=== PATIENT | male | born 1955 | race Two or more races ===

== ENCOUNTER → 2024-04-28 | Outpatient (BNVA) | payer MEDICARE, MEDICAID, SELFPAY | END | disposition home or self-care (01) | PROVIDERS: PCP Internal Medicine; Referring Provider Internal Medicine; Visit Provider Urology | DX: Z53.21 Procedure and treatment not carried out due to patient leaving prior to being seen by health care provider (principal) | CPT/HCPCS: 81003 ==

== ENCOUNTER 2024-11-21 05:00 | Emergency (ER) | payer MEDICARE, MEDICAID, SELFPAY ==
[2024-11-21 05:03] VITALS: BMI 25.3
--- NOTE | 2024-11-21 05:09 | EKG_ITS ---
[facility] (Formerly [facility]) Test Date: 2024-11-21 Pat Name: MARISOL Michelpartment: Room: - Gender: Male Gate Operator: : 1955 Requested By: Edwin Theodore Order Number: [id number] Reading MD: Edwin Theodore Measurements Intervals [place] Rate: 70 P: 17 PA: 231 QRS: 26 QRSD: 94 T: 41 QT: 374 QTc: 405 Interpretive Statements SINUS RHYTHM WITH FIRST DEGREE AV BLOCK No previous ECG available for comparison /store/S0/[id number]/ecg/[id number].pdf
--- NOTE | 2024-11-21 05:09 | PD.EDRME ---
Rapid Medical Screening Exam E Arrival date/time: 11/21/24 05:00 Chief Complaint: Dizziness Vital signs: Vital Signs Temperature 98.1 F 11/21/24 05:16 Pulse Rate 69 11/21/24 05:16 Respiratory Rate 17 11/21/24 05:16 Blood Pressure 148/93 H 11/21/24 05:16 Pulse Oximetry (%) 96 11/21/24 05:16 Oxygen Delivery Method Room Air 11/21/24 05:16 E Narrative: Dizziness, nausea/vomiting since 399
[2024-11-21 05:16] VITALS: BP 148/93; PULSE 69; RESP 17; TEMP 36.7; O2SAT 96
--- NOTE | 2024-11-21 05:17 | XR_ITS ---
Examination: CT brain head without contrast. 2-D sagittal coronal reconstructions Date and time of exam:November 21, 2024 at 0554 hours INDICATIONS: Dizziness weakness nausea beginning today CTDI: vol (mGy):45.3 DLP: (mGycm):871 Technique: Multiple CT axial sections of the brain have been obtained, 5 mm slice thickness. Contrast has not been administered. 2-D sagittal, coronal reconstructions have been obtained Low dose protocols were performed. One or more of the following dose reduction techniques were used; automated exposure control, adjustment of the mA and/or KV according to patient size, use of iterative reconstruction technique. Findings: No significant ventricular enlargement. Intra-axial or extra-axial hemorrhage density is not seen. No mass effect or midline shift Basal cisterns are not remarkable. Fourth ventricle is midline. Cranial vault intact. Chronic ethmoid sinusitis Impression: Negative for acute hemorrhage, mass effect or midline shift Advise clinical correlation and follow-up accordingly
--- NOTE | 2024-11-21 05:41 | PC.NURSE ---
DR. ZAVALA ASSESSING PATIENT AND NOT A STROKE ALERT PER DR. ZAVALA.
[2024-11-21 06:25] LABS: Collection Type, Urine Clean Catch
--- NOTE | 2024-11-21 06:47 | EDNOTE_ITS ---
ED Dizzyness RME/HPI General Chief Complaint: Dizziness Stated Complaint: DIZZINESS, WEAKNESS, NAUSEA Arrival date/time: 11/21/24 05:00 RME / HPI RME / HPI Narrative: Dizziness, nausea/vomiting since [address] [facility]?s Main ED Evaluation: 68yo male with a history of DM, HTN presents to the ED for feelings lightheadedness and dizzy. Patient states he woke up and looked outside and then started getting dizzy he was able to stand up symptoms improved and again unsteady feeling dizzy again. Denies fevers chills vomiting chest pain palpitations abdominal pain dysuria hematuria melena bloody stools diarrhea recent travel sick contacts drugs alcohol smoking. MD complaint: dizziness Related Data Home Medications ?Medication ?Instructions ?Recorded ?Confirmed aspirin 81 mg tablet,delayed 81 mg PO QDAY 03/27/20 release amlodipine 5 mg tablet 5 mg PO QDAY 04/28/24 atorvastatin 20 mg tablet 20 mg PO QDAY 04/28/2404/28 glipizide 2.5 mg tablet 2.5 mg PO QDAY 04/28/2410/15 Allergies Allergy/AdvReac Type Severity Reaction Status Date / Time No Known Allergies Allergy Verified 11/21/24 05:03 Review of Systems Review of Systems Systems Reviewed: All systems reviewed, normal except as documented Past Medical History Past Medical History NEUROLOGIC: Positive Neurological Disorders and Migraine CARDIAC: Positive Cardiac Disorders and Hypertension; Negative Congestive Heart Failure RESPIRATORY: Negative Chronic Obstructive Pulmonary Disease (COPD) GASTROINTESTINAL: Positive Gastrointestinal Disorders, Ulcer and Gastroesophageal Reflux Disease GENITOURINARY: Positive Genitourinary Disorders and Kidney Stones; Negative Renal Disease MUSCULOSKELETAL: Positive Musculoskeletal Disorders and Arthritis ENT: Negative Glaucoma ENDOCRINE: Positive Endocrine Disorders and Diabetes Mellitus Type 2; Negative Diabetes Mellitus Type 1 HEMATOLOGIC: Negative Blood Disorders or Anemia PSYCHO/SOCIAL: Negative Depression or Anxiety OTHER HISTORY: Positive Chicken Pox; Negative Cancer Social History SMOKING STATUS: Never smoker ED Exam Narrative Physical exam: GEN. APPEARANCE: The patient is alert awake oriented X-3 in no distress, lying down comfortably, does not look ill/toxic. Patient has good eye contact. Patient is cooperative. VITALS: All vitals were reviewed and the pulse ox is 96% on room air which is normal according to my interpretation. HEENT: Normocephalic, atraumatic. Pupils are equal and reactive. Oral mucosa is moist. Patent Nares NECK: Supple, nontender, no thyromegaly, no meningismus, no JVD CHEST: Symmetrical, atraumatic, and with equal expansion , Nontender on palpation no deformity and no crepitus. CARDIOVASCULAR: Heart regular rhythm no murmur or gallop rub or extra beats. LUNGS: Clear to auscultation bilaterally with symmetrical chest rise. No laboring tachypnea or wheezing. No intercostal subcostal retraction. No rales and no rhonchi. ABDOMEN: Soft, flat, nontender to palpation, no guarding or rebound tenderness. There are no abnormal masses palpated. Active and normal bowel sounds. EXTREMITIES: Nontender. No edema. No cyanosis. Patient is able to move all 4 extremities well, with full ROM and good CSM. SKIN: Warm and dry, no jaundice or rashes noted. NEURO: Patient is LEMUS x 4, Cranial nerves II through XII grossly intact. There is no focal neurologic deficits noted. 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 PSYCHIATRIC: Patient is in normal mood and affect. Course Quality Measures none Orders Category Date Time Status EKG (ED ONLY) *Do not use* NOW Care 11/21/24 05:[address] head/brain wo con Stat Exams 11/21/24 05:17 Completed EKG (ED Only) Stat Exams 11/21/24 05:09 Draft CBC Stat Lab 11/21/24 06:16 Completed CMP [Comprehensive Metabolic Panel] Stat Lab 11/21/24 06:16 Completed Lipase Stat Lab 11/21/24 06:16 Completed Troponin I Stat Lab 11/21/24 06:16 Completed UA [Urinalysis] Stat Lab 11/21/24 05:43 Completed Metoclopramide [Reglan] Med 11/21/24 06:50 Discontinued 5 mg PO X1 ONE Ringers Lactated 1000 ml [Lactated Ringers] 1,000 ml Med 11/21/24 07:30 Active IV 999 mls/hr Vital Signs Vital signs: Vital Signs Temperature 98.1 F 11/21/24 05:16 Pulse Rate 69 11/21/24 05:16 Respiratory Rate 17 11/21/24 05:16 Blood Pressure 148/93 H 11/21/24 05:16 Pulse Oximetry (%) 96 11/21/24 05:16 Oxygen Delivery Method Room Air 11/21/24 05:16 Pulse ox is 96% on room air which is adequate. Dizziness MDM Narrative MDM Narrative:: Patient is a 68-year-old male seen emerged part with concerns for acute episode of feeling lightheaded and dizzy. Vital signs and exam as above. Concern for ACS arrhythmia electrolyte abnormality viral syndrome BPPV electrolyte disturbance among others. Ordered labs EKG CT brain and medications for symptom relief. Labs without any significant acute hematologic abnormality, patient chloride elevated concern the patient may be fluid down. Will provide patient with fluids. Patient does not have a history of heart failure. No other significant electrolyte abnormalities. Patient has a history of chronic kidney disease creatinine is at his baseline. Troponin not elevated urinalysis without evidence of infection however does have hematuria. EKG without evidence of i schemia does have prolonged OH. CT brain unremarkable. On reevaluation patient hemodynamically stable not in distress. Symptoms resolved. Will discharge to home with close return precautions follow-up with primary care doctor. Patient data External records reviewed:: [facility] previous records (Per chart review, patient was seen here on 05/21/22 for lumbar region strain.) Clinical information provided by:: patient Social determinants that could affect healthcare access:: none Patient has the following chronic illnesses:: DM, HTN, arthritis How is presenting disease/condition affected by chronic disease/condition?: uneffected by Evaluation data The following diagnostics were reviewed and interpreted by me:: lab results, radiology exam(s) and EKG tracing(s) Lab and/or radiology exams considered but not ordered:: none Interpretation Summary: EKG done at 0518, NSR, rate of 70, prolonged OH at 231, normal QT, no acute ischemia, according to my interpretation. ------- [facility] Report Signed Patient: MARISOL ROMEO [facility]. Record#: [id number] Birthdate: 1955 Age/Sex: 68 / M Location: [facility] Attending Dr: Ordering Physician: Edwin Theodore PA-C Date of Service: 11/21/24 Procedure(s): CT head/brain wo con Accession Number(s): [id number] cc: Leila Garcia NP; Matthias Humphrey MD; Edwin Theodore PA-C~ Examination: CT brain head without contrast. 2-D sagittal coronal reconstructions Date and time of exam:November 21, 2024 at 0554 hours INDICATIONS: Dizziness weakness nausea beginning today CTDI: vol (mGy):45.3 DLP: (mGycm):871 Technique: Multiple CT axial sections of the brain have been obtained, 5 mm slice thickness. Contrast has not been administered. 2-D sagittal, coronal reconstructions have been obtained Low dose protocols were performed. One or more of the following dose reduction techniques were used; automated exposure control, adjustment of the mA and/or KV according to patient size, use of iterative reconstruction technique. Findings: No significant ventricular enlargement. Intra-axial or extra-axial hemorrhage density is not seen. No mass effect or midline shift Basal cisterns are not remarkable. Fourth ventricle is midline. Cranial vault intact. Chronic ethmoid sinusitis Impression: Negative for acute hemorrhage, mass effect or midline shift Advise clinical correlation and follow-up accordingly Dictated By: Matthias Humphrey MD Signed By: <Electronically signed by Matthias Humphrey MD in [place]> 11/21/24 0654 Medications / Prescriptions Medications or Prescriptions considered but not ordered:: none Medication administrations:: Medication Administration History Lactated Ringer's (Lactated Ringers) 1,000 mls @ 999 mls/hr IV .Q1H1M ONE Stop: 11/21/24 08:30 Discontinued Medications Metoclopramide HCl (Metoclopramide 5 Mg Tablet) 5 mg PO X1 ONE Stop: 11/21/24 06:51 See above Consultations Consultation(s) initiated? (list below): No Diagnosis Dizziness Differential Diagnosis: other (metabolic disturbance, dehydration, UTI, arrhythmia, ICH ) Most likely diagnosis given after review of the tests above:: Dehydration Vertigo Admission Indicated Admission indicated?: not indicated Admission Request Was there a request for admission?: No Disposition Plan Disposition Plan: Discharge Discharge Attestation Discharge Attestation: The patient and all family members were given an opportunity to ask questions and understood the discharge instructions. Discharge instructions specifically effects, indications for sooner follow up or return to the emergency department, and the expected course of current diagnosis. Patient condition: Stable Discharge Plan Plan Patient Disposition: HOME (Self Care) Prescriptions/Referrals Prescriptions/Med Rec: No Action aspirin 81 mg tablet,delayed release (DR/EC) 81 mg PO QDAY amlodipine 5 mg tablet 5 mg PO QDAY atorvastatin 20 mg tablet 20 mg PO QDAY glipizide 2.5 mg tablet 2.5 mg PO QDAY Referrals: Leila Garcia [employer] [Primary Care Provider] - In 1 week Problem List Clinical Impression: Dehydration, Vertigo Patient/Caregiver Discharge Instructions Education Materials: Dehydration, Vertigo Staying Safe Additional Instructions: Por favor regresar al departamento de emergencias si tiene recurrencia de sintomas o nuevos sintomas de preocupacion. Print Language: Yi Stand Alone Forms: [employer] Award Info., Patient Portal Info Letter
[2024-11-21 06:58] LABS: Basophils # (Auto) 0.1 Thou/mm3 (0.0-0.2); Basophils % (Auto) 1 % (0-2.5); Eosinophils # (Auto) 0.3 Thou/mm3 (0.0-0.5); Eosinophils % (Auto) 4 % (0-10); Hematocrit 41.3 % (41.0-53.0); Hemoglobin 13.9 g/dL (13.5-16.0); Immature Granulocytes % (Auto) 0 % (0-0); Immature Granulocytes Auto 0.02 Thou/mm3 (0.00-0.00); Lymphocytes # (Auto) 2.2 Thou/mm3 (1.0-4.8); Lymphocytes % (Auto) 30 % (10-50); Mean Corpuscular HGB Conc 33.7 g/dl (31.0-37.0); Mean Corpuscular Hemoglobin 30.3 pg (25.0-35.0); Mean Corpuscular Volume 90 fL (80-100); Monocytes # (Auto) 0.5 Thou/mm3 (0.0-0.8); Monocytes % (Auto) 7 % (0-12); Neutrophils # (Auto) 4.5 Thou/mm3 (1.8-7.7); Neutrophils % (Auto) 59 % (37-80); Nucleated Red Blood Cell % 0 /100 WBC (0); Platelet Count 210 Thou/mm3 (140-440); RDW Standard Deviation 47.5 fL (35.1-43.9); Red Blood Count 4.58 Miln/mm3 (4.50-5.90); White Blood Count 7.5 Thou/mm3 (3.8-10.6)
[2024-11-21 07:06] LABS: Bilirubin,Urine Negative (Negative); Blood,Urine 2+ (Negative); Clarity,Urine Clear (Clear/Hazy); Color,Urine Yellow (Lt Yel-Yel); Glucose, Urine Negative (Negative); Ketones,Urine Negative (Negative); Leukocyte Esterase,Urine Negative (Negative); Nitrite,Urine Negative (Negative); PH,Urine 5.5 (5.0-7.0); Protein,Urine Trace (Neg - Trace); RBC,Urine 7 /hpf (0-3); Specific Gravity,Urine 1.021 (1.001-1.035); Squamous Epithelial Cell,Urine < 1 /hpf (0-5); Urobilinogen,Urine Negative mg/dL (0.0-1.0); WBC,Urine 1 /hpf (0-5)
[2024-11-21 07:12] LABS: Alanine Aminotransferase 35 U/L (10-49); Albumin, Serum 4.3 gm/dL (3.4-4.8); Albumin/Globulin Ratio 1.3 (1.2-2.2); Alkaline Phosphatase 133 U/L (46-116); Anion Gap 7 (7-16); Aspartate Amino Transferase 22 U/L (0-34); BUN/Creatinine Ratio 8 Ratio (12-20); Bilirubin,Total 0.5 mg/dL (0.3-1.2); Blood Urea Nitrogen 12 mg/dL (9-23); Calcium 9.2 mg/dL (8.3-10.6); Calcium (Corrected) 9.2 mg/dL (8.5-10.1); Carbon Dioxide 22.9 mMol/L (20.0-31.0); Chloride 110 mMol/L (98-107); Creatinine (Component) 1.5 mg/dL (0.6-1.3); Estimated Creatinine Clearance 43.1 mL/min (>60); Globulin 3.2 gm/dL (2.3-3.5); Glucose 120 mg/dL (74-106); Lipase 17 U/L (12-53); Osmolality,Calculated 280 (275-295); Potassium 4.7 mMol/L (3.4-5.1); Sodium 140 mMol/L (136-145); Total Protein 7.5 gm/dL (5.7-8.2); Troponin I < 0.020 ng/mL (0.0-0.045); eGFR 51 See Note
[2024-11-21] MEDS: METOCLOPRAMIDE 5 MG TABLET PO (08:05)
[2024-11-21] MEDS: RINGERS LACTATED 1000 ML 1,000 ML 999 ML IV (08:39)
== END 2024-11-21 09:37 | disposition home or self-care (01) ==
PROVIDERS: Physician Assistant; Emergency Provider Emergency Medicine; PCP Nurse Practitioner Women's Health
DX: E86.0 Dehydration (principal); R42 Dizziness and giddiness; E11.9 Type 2 diabetes mellitus without complications; I10 Essential (primary) hypertension; I44.0 Atrioventricular block, first degree
CPT/HCPCS: 36415; 70450; 80053; 81001; 83690; 84484; 85025; 93005; 99284; J7120; A9270